=== PATIENT | female | born 1995 | race Caucasian/White ===

== ENCOUNTER → 2020-01-24 13:33 | Outpatient (CLI) | payer OTHER, SELFPAY ==
--- NOTE | 2020-01-24 14:15 | DI.ECHO.S_ITS ---
Echocardiogram Report + + :Name: BEVERLY ESPINOSA Study Date: 01/24/2020 Height: 67 in : :[facility] Weight: 170 lb : : Gender: Female BSA: 1.9 m2 : :: 1995 Age: 24 yrs BP: 121/71 mmHg: :Reason For Study: Chest pain, Syncope : :Ordering Physician: Ronaldo : :Lele Performed By: Lexii Villegas : + + Interpretation Summary The left ventricle is normal in size. The ejection fraction is estimated to be 60-65%. The right ventricle is normal in size and function. No significant valvular pathology seen. The IVC is of normal diameter and collapses greater than 50% with a sniff. This suggests a low right atrial pressure of 3 mm Hg. Incidental finding of a large hypoechoic mass 8.4 x 8.5 cm in the upper left abdominal quadrant (images [id number]). Please send this report to PCP and consider ultrasound abdomen of upper left abdominal quadrant for further evaluation. Procedure: A two-dimensional transthoracic echocardiogram with color flow and Doppler was performed. The study quality was technically good. There is no prior echocardiogram noted for this patient. The patient was in normal sinus rhythm during the exam. Left Ventricle: The left ventricle is normal in size. There is normal left ventricular wall thickness. There is no thrombus. The ejection fraction is estimated to be 60-65%. There are no focal wall motion abnormalities. Diastolic parameters suggest probable normal left ventricular diastolic function and normal filling pressures. Right Ventricle: The right ventricle is normal in size and function. Atria: Both atria are normal in size. There is no Doppler evidence for an interatrial shunt. Mitral Valve: The mitral valve is normal in structure and function. There is no mitral regurgitation noted. Aortic Valve: The aortic valve is trileaflet. The aortic valve opens well. There is no aortic valve stenosis. No aortic regurgitation is present. Tricuspid Valve: The tricuspid valve is normal in structure and function. There is a trace or physiologic amount of tricuspid regurgitation. Pulmonary artery pressures cannot be estimated because of the lack of a measurable TR jet velocity but the IVC suggests a CVP of around 3 mmHg. Pulmonic Valve: The pulmonic valve is not well seen, but is grossly normal. Great Vessels: The aortic root is normal size. The ascending aorta could not be visualized. The aortic arch is normal in size. The IVC is of normal diameter and collapses greater than 50% with a sniff. This suggests a low right atrial pressure of 3 mm Hg. Pericardium/ Pleura There is no pericardial effusion. There is no pleural effusion. MMode/2D Measurements & Calculations LVIDd: 4.7 cm LVOT diam: 2.1 cm LVIDs: 2.5 cm Ao root diam: 2.5 cm FS: 46.1 % Ao Arch Diam (Prox Trans): 2.3 cm EPSS: 0.38 cm IVSd: 0.76 cm LVPWd: 0.67 cm LV maddox. diameter/BSA (cm/m^2): 2.5 LV sys. diameter/BSA (cm/m^2): 1.3 LA A2 area: 14.4 cm2 RA long axis: 4.2 cm LA A4 area: 14.7 cm2 RA area: 11.1 cm2 LA length (vol): 4.7 cm RA vol: 24.6 ml LA vol: 38.4 ml RA : 13.0 ml/m2 LA vol index: 20.4 ml/m2 IVC diam: 1.3 cm RVD1 (basal): 2.7 cm RVD2 (mid): 2.6 cm TAPSE: 2.1 cm Doppler Measurements & Calculations Ao V2 max: 158.7 cm/sec LVOT Max Igor: 94.2 cm/sec Ao V2 mean: 109.9 cm/sec LV V1 max P.6 mmHg Ao max P.1 mmHg LV V1 VTI: 14.0 cm Ao mean P.4 mmHg PRATIMA(I,D): 1.6 cm2 Ao V2 VTI: 29.5 cm PRATIMA(V,D): 2.0 cm2 sev ratio: 0.48 PRATIMA indexed to BSA (cm^2/m^2): 0.84 MV E max igor: 68.9 cm/sec PA V2 max: 121.2 cm/sec MV A max igor: 49.3 cm/sec PA V2 mean: 82.7 cm/sec MV E/A: 1.4 PA mean P.1 mmHg Med Peak E' Igor: 11.9 cm/sec PA Accel Time: 0.11 sec E/E' med: 5.8 Lat Peak E' Igor: 16.4 cm/sec E/E' lat: 4.2 E/e' average: 5.0 MV dec time: 0.24 sec MV P1/2t: 70.3 msec MV P1/2t max igor: 69.0 cm/sec SV(LVOT): 46.7 ml MVA(P1/2t): 3.1 cm2 Reading Physician:05:38 PM
== END ==
PROVIDERS: Referring Provider Nurse Practitioner; Visit Provider Nurse Practitioner
DX: R07.89 Other chest pain (principal); R55 Syncope and collapse; R19.02 Left upper quadrant abdominal swelling, mass and lump
CPT/HCPCS: 93306

== ENCOUNTER → 2020-01-27 14:32 | Outpatient (CLI) | payer OTHER, SELFPAY ==
[2020-01-29 17:17] LABS: COVID19 Sendout Not Detected (Not Detect)
== END ==
PROVIDERS: Visit Provider Nurse Practitioner
DX: Z11.59 Encounter for screening for other viral diseases (principal)
CPT/HCPCS: 87635

== ENCOUNTER → 2020-01-30 14:13 | Outpatient (CLI) | payer OTHER, SELFPAY ==
--- NOTE | 2020-01-31 19:04 | DI.NM.S_ITS ---
DATE OF SERVICE: 01/30/2020 PROCEDURE: Exercise stress test. INDICATIONS: Syncope. CARDIAC STRESS: The patient underwent exercise stress test under the supervision of an attending staff. She walked on Chip protocol for 10 minutes 42 seconds, achieved 12.8 METs of workload, functional aerobic impairment positive 29 percent. She felt leg discomfort, as well as some chest tightness. Baseline EKG reveals sinus rhythm with some repolarization changes. During exercise, there were no convincing ischemic changes. In recovery, there was some flattening of inferior lateral leads. No significant arrhythmia seen. The patient achieved target heart rate at second stage of Chip protocol. CONCLUSION: Exercise stress test is negative for convincing inducible ischemia. No significant arrhythmias seen. Normal hemodynamic response. She walked on Chip protocol for 10 minutes 42 seconds and achieved 12.8 METs of workload. She had some chest tightness during exercise, as well as had leg discomfort. Overall, this is a low-risk exercise stress test. BEVERLY ESPINOSA - DC/damian/kamlesh doc#: [id number]/job#: [id number] dd: 01/31/2020 16:59:00 dt: 01/31/2020 18:41:00 DICTATING /COPIES TO: Sohail Hamlin MD COPIES MNE: GABE;
== END ==
PROVIDERS: Referring Provider Internal Medicine Cardiovascular Disease; Visit Provider Internal Medicine Cardiovascular Disease
DX: R07.89 Other chest pain (principal); R55 Syncope and collapse
CPT/HCPCS: 93017